=== PATIENT | female | born 1960 | race Caucasian/White ===

== ENCOUNTER 2018-10-19 16:08 | Emergency (ER) | payer OTHER ==
[~2018-10-19] VITALS: Ht 154.9 cm; Wt 58.6 kg
[2018-10-19] MEDS ORDERED: CYCLOBENZAPRINE HCL 10 MG TABLET PO ONE (21:15)
[2018-10-19 23:06] VITALS: BP 134/78
== END 2018-10-19 23:28 | disposition home or self-care (01) ==
LOC: EMS 16:09
DX: S16.1XXA Strain of muscle, fascia and tendon at neck level, initial encounter (principal); V43.52XA Car driver injured in collision with other type car in traffic accident, initial encounter; Y93.89 Activity, other specified; Y92.411 Interstate highway as the place of occurrence of the external cause; Y99.8 Other external cause status
CPT/HCPCS: 70450; 72125